=== PATIENT | female | born 1950 | race Caucasian/White ===

== ENCOUNTER → 2017-02-02 | Outpatient (CLI) | payer OTHER ==
[~2017-02-02] MED LIST: IBUPROFEN
--- NOTE | ~2017-02-02 | CT4 ---
[facility] A Service of [facility] & [facility] RADIOLOGY TEXT RESULTS PATIENT: [facility]NA JETT [facility] UN[facility] #: [id number] AGE: [address]: YUSUF GOLD MD (INT MED) SEX: F ORDER DR: [id number] [facility] [address] [place], [place] [address] [id number] O MR#: [id number] Acc #: [id number] NAME: ANA JETT : 1950 SEX: F STUDY DATE/TIME: 02/02/2017 10:50 UNIT: [facility] ROOM: STUDY DESCRIPTION: CT Abd and Pelv Wo Cont Attending Physician: Yusuf Gold M.D. Referring Physician: Yusuf Gold M.D. Ordering Physician: Yusuf Gold M.D. Primary Care Physician: Yusuf Gold M.D. MEDICAL IMAGING REPORT This report is preliminary unless electronic signature is present EXAM Abdomen and pelvis CT no contrast 02/02/2017 INDICATIONS 66-year-old female with abdominal pain symptoms for 3 weeks. Microscopic hematuria since 01/27/2017. No history of malignancy. The patient is status post hysterectomy to ligation and cholecystectomy. TECHNIQUE Noncontrast abdomen and pelvis CT was performed. This CT exam was performed with one or more of the following radiation dose reduction techniques: automatic exposure control, adjustment of mA and/or kV according to patient size, and iterative reconstruction. COMPARISON There are no comparisons. FINDINGS CT exam markedly degraded by noncontrast technique. There are 2 noncalcified nodules in the right lower lobe 1 measures 4 mm and a second 5 mm. These may be inflammatory or infectious but are technically indeterminate. Based on size dimensions suggest interval followup CT in 6-12 months if the patient is at high risk for malignancy and interval followup in 1 year if the patient is at low risk. There is no pericardial effusion. Aorta demonstrates atherosclerotic change. There is no aneurysm. Spleen and adrenal glands are unremarkable. Pancreas demonstrates atrophy and fatty infiltration. Gallbladder surgically absent. Liver unremarkable. Stomach not well distended or evaluated. Kidneys demonstrate no hydronephrosis on either side or inflammatory change. Equivocal tiny sand-like nonobstructing stone in the mid pole right kidney. No adenopathy. [facility]. [facility] A Service of [facility] RADIOLOGY TEXT RESULTS PATIENT: ANA JETT LOCATION: [facility] : 48 UNIT #: [id number] AGE: [address]: YUSUF GOLD MD (INT MED) SEX: F ORDER DR: CT pelvis: Bladder unremarkable. Uterus surgically absent. No drainable fluid collection in the pelvis. No adnexal mass. Bowel unremarkable. Appendix normal. Inguinal canals are unremarkable. No suspicious bone lesion. IMPRESSION 1. Equivocal tiny sand-like nonobstructing stone in the mid pole right kidney. Kidneys are otherwise unremarkable. 2. The appendix is normal. 3. There are 2 noncalcified nodules in the right lower lobe measuring less than 5 mm. Please see followup recommendations based on Fleischner criteria in the body of the report. 4. Surgical absence of the gallbladder and uterus. Dictated by... Cristian Pinto M.D. THIS IS AN ELECTRONICALLY VERIFIED REPORT Cristian Pinto M.D. at 02/02/2017 3:44 PM ALBERTO/emma TD: 02/02/2017 14:43 JOB #: [id number] MEDICAL IMAGING REPORT COPY
== END | disposition home or self-care (01) ==
LOC: CCAT 09:25
DX: R31.29 Other microscopic hematuria (principal); R10.9 Unspecified abdominal pain; N20.0 Calculus of kidney; R91.8 Other nonspecific abnormal finding of lung field; Z90.710 Acquired absence of both cervix and uterus; Z90.49 Acquired absence of other specified parts of digestive tract
CPT/HCPCS: 74176

== ENCOUNTER → 2017-05-22 | Outpatient (CLI) | payer OTHER ==
--- NOTE | ~2017-05-22 | MY29 ---
[facility] A Service of [facility] & [facility] RADIOLOGY TEXT RESULTS PATIENT: ANA JETT LOCATION: [facility] : 48 UNIT #: [id number] AGE: [address]: YUSUF GOLD MD (INT MED) SEX: F ORDER DR: [id number] [facility] [address] [place], [place] [address] [id number] O MR#: [id number] Acc #: [id number] NAME: ANA JETT : 1950 SEX: F STUDY DATE/TIME: 05/22/2017 9:43 UNIT: [facility] ROOM: STUDY DESCRIPTION: MY JAYLAN SCREENING W/ CAD BILAT Attending Physician: Yusuf Gold M.D. Ordering Physician: Yusuf Gold M.D. Primary Care Physician: Yusuf Gold M.D. MEDICAL IMAGING REPORT This report is preliminary unless electronic signature is present EXAM Digital screening mammogram 05/22/2017, [facility]. HISTORY 67-year-old woman; positive family history, 2 sisters. Annual screening. COMPARISON 04/12/2011, 05/11/2012, 11/21/2013, 11/24/2014, 05/12/2016. FINDINGS Digital imaging of each breast was completed utilizing screening protocol. Review includes FDA-approved CAD device. Breast parenchyma is predominantly fatty replaced. Subcentimeter circumscribed nodule projecting outer hemisphere, left breast, anterior third, deep to the lateral areolar margin, is stable. I see no suspicious interval occurring microcalcifications and no architectural deformity. IMPRESSION Negative mammogram. Annual screening recommended. Patients over the age of 40 are entered into a reminder system with target due date for the next mammogram. A result letter will also be sent to the patient. BIRADS: 1 Negative Dictated by... Dany Aly M.D. THIS IS AN ELECTRONICALLY VERIFIED REPORT Dany Aly M.D. at 05/22/2017 2:54 PM ZEEB/[place] [facility] A Service of [facility] & [facility] RADIOLOGY TEXT RESULTS PATIENT: ANA JETT LOCATION: [facility] : 48 UNIT #: [id number] AGE: [address]: YUSUF GOLD MD (INT MED) SEX: F ORDER DR: TD: 05/22/2017 13:30 JOB #: [id number] MEDICAL IMAGING REPORT Page 1 of 1 COPY
== END | disposition home or self-care (01) ==
LOC: CWCC 09:11
DX: Z12.31 Encounter for screening mammogram for malignant neoplasm of breast (principal); Z80.3 Family history of malignant neoplasm of breast
CPT/HCPCS: G0202